=== PATIENT | female | born 1950 | race Caucasian/White ===

== ENCOUNTER 2020-07-29 12:21 | Emergency (ER) | payer MEDICAID, MEDICARE ==
[2020-07-29] MEDS ORDERED: KETOROLAC 60 MG/2 ML VIAL IM STA (12:40)
--- NOTE | 2020-07-29 12:42 | ED Physician Documentation ---
History of Present Illness - Stated complaint Stated Complaint: GLF - RT ARM INJURY - Chief complaint Chief Complaint: Trauma Ext - History obtained from History obtained from: Patient, Family - History of Present Illness Timing: Yesterday Pain level max: 9 Pain level now: 9 - Additonal information Additional information: 70-year-old female presents to the emergency department after a slip and fall in the bathtub yesterday. She states that she struck her head and "saw stars". She does not think she was knocked out. Has had some nausea but no vomiting. She is complaining of pain to the right side of her chest and bilateral ribs. She is also complaining of pain to the right arm. She states it is mostly in the upper arm, states she is unable to move or use the arm at all today. She drove herself here today. No numbness or tingling. No loss of bowel or bladder control. Does not take any blood thinners at home. 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: section, Hysterectomy, Breast reduction - Present Medications Home Medications: Ambulatory Orders Medication Instructions Recorded Confirmed Lindane 60 ml TP ONCE #1 tub 02/19/14 Sulfamethoxazole/Trimethoprim 1 each PO BID #14 tablet 02/19/14 [Bactrim Ds Tablet] cephALEXin [Keflex] 500 mg PO Q6H #28 capsule 02/19/14 Oxycodone HCl/Acetaminophen 1 - 2 each PO Q6H PRN #14 tablet 07/29/20 [Percocet 5-325 mg Tablet] - Allergies Allergies/Adverse Reactions: Allergies Allergy/AdvReac Type Severity Reaction Status Date / Time codeine Allergy Nausea Verified 02/19/14 15:07 - Social History Does the pt smoke?: Yes Smoking Status: Current every day smoker Does the pt drink ETOH?: No Does the pt have substance abuse?: No - POLST Patient has POLST: No PD ED PE NORMAL - Vitals Vital signs reviewed: Yes - General General: Alert and oriented X 3, No acute distress - HEENT HEENT: Atraumatic, PERRL, Ears normal, Moist mucous membranes, Pharynx benign - Neck Neck: Supple, no meningeal sign, Other (Mild upper C-spine tenderness to palpation. No step-off or deformity.) - Cardiac Cardiac: RRR - Respiratory Respiratory: No respiratory distress, Clear bilaterally, Other (TTP over the R anterior chest wall and ribs, no crepitus or ecchymosis. ) - Abdomen Abdomen: Soft, Non tender, Non distended - Back Back: No spinal TTP - Derm Derm: Warm and dry - Extremities Extremities: Other (R arm - Tender to palpation over the midshaft humerus, right upper extremity. Minimal tenderness around the glenohumeral joint. Severely limited range of motion secondary to pain. NVI. no deformity. 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 No acute skull fracture. ) C spine CT Radiology: Prelim report reviewed, EMP read contemporaneously, See rad report (no fracture, degenerative changes) CT chest w/o Radiology: Prelim report reviewed, EMP read contemporaneously R humerus xray Radiology: Prelim report reviewed, EMP read contemporaneously, See rad report PD MEDICAL DECISION MAKING - ED course Complexity details: reviewed results, re-evaluated patient, considered differential, d/w patient, d/w family ED course: Patient with a comminuted, impacted right proximal humeral shaft/surgical neck fracture. Placed in a sling. We will have her follow-up with orthopedics for further care. No other acute injuries on imaging. Neurovascularly intact. Axillary nerve intact. Patient counseled regarding signs and symptoms for which I believe and urgent re-evaluation would be necessary. Patient with good under standing of and agreement to plan and is comfortable going home at this time This document was made in part using voice recognition software. While efforts are made to proofread this document, sound alike and grammatical errors may occur. R shoulder xray Minimal irregularity at the humeral head. This could be related to degenerative change or impacted fracture. If clinically indicated consider right shoulder radiographs. CT chest 1. Scattered scarring/atelectasis in posterior lateral periphery of bilateral lung hagen more prominent on the right side, subtle contusion cannot be excluded. No focal infiltrate, pleural effusion or pneumothorax. Airway is patent. 2. No gross acute rib fracture. Comminuted and impacted right proximal humeral shaft/surgical neck fracture is seen extending to involve greater tuberosity as above. 3. No mediastinal lymphadenopathy or hematoma. Mild atherosclerotic disease. Departure - Departure Disposition: 01 Home, Self Care Clinical Impression: Humeral surgical neck fracture Qualifiers: Encounter type: initial encounter Fracture type: closed Fracture morphology: unspecified fracture morphology Fracture alignment: nondisplaced Laterality: right Qualified Code(s): S42.214A - Unspecified nondisplaced fracture of surgical neck of right humerus, initial encounter for closed fracture Condition: Good Instructions: ED Fx Upper Ext Follow-Up: KENTRELL CHILDS MD [Primary Care Provider] - [facility] [Provider Group] - Within 1 week Prescriptions: Oxycodone HCl/Acetaminophen [Percocet 5-325 mg Tablet] 1 - 2 each PO Q6H PRN #14 tablet PRN Reason: pain Comments: Wear the sling until released by orthopedics. Return if you worsen. You do have a fracture of your right humeral neck. This should heal on its own. Do not drink alcohol or drive while on narcotic pain medicine. Note that many narcotic pain relievers also contain tylenol/acetaminophen. Please ensure that your total dose of acetaminophen from all sources does not exceed 3 grams (3000mg) per day. You may constipated on this medication, take a stool softener such as "Colace" twice a day while you are on it. Also recommend a [id number] laxative such as senna or MiraLAX any day that you do not have a bowel movement. If you received narcotic pain medication in the emergency department, do not drive or operate machinery for the next 24 hours.
--- NOTE | 2020-07-29 13:40 | XRAY Report ---
PROCEDURE: Humerus RT INDICATIONS: fall R arm pain TECHNIQUE: 2 views of the humerus were acquired. COMPARISON: None. FINDINGS: Bones: No fractures or dislocations. Minimal irregularity at the humeral head. No suspicious bony le sions. Soft tissues: No suspicious soft tissue calcifications. IMPRESSION: No humeral shaft fracture. Minimal irregularity at the humeral head. This could be related to degenerative change or impacted fr acture. If clinically indicated consider right shoulder radiographs. Reviewed by: Shadi Britton MD on 07/29/2020 1:39 PM [facility] Approved by: Shadi Britton MD on 07/29/2020 1:39 PM [facility] Station ID: [id number]
--- NOTE | 2020-07-29 13:58 | CT Report ---
PROCEDURE: HEAD WO INDICATIONS: fall,head injury TECHNIQUE: Noncontrast 4.5 mm thick angled axial sections acquired from the foramen magnum to the vertex. For r adiation dose reduction, the following was used: automated exposure control, adjustment of mA and/or kV according to patient size. COMPARISON: None FINDINGS: Image quality: Excellent. CSF spaces: Basal cisterns are patent. No extra-axial fluid collections. The ventricles are symmet aleksandra in size and shape. Brain: No intracranial bleeds or masses. There is cerebral volume loss for age, with resultant vent ricular and sulcal prominence. There are periventricular and deep white matter chronic small vessel ischemic changes. There is intracranial internal carotid artery atherosclerosis. Skull and face: Calvarium and visualized facial bones appear intact, without suspicious lesions. Sinuses: Visualized sinuses and mastoids are clear. IMPRESSION: No CT evidence of acute intracranial pathology. No acute skull fracture. Reviewed by: Skyler Alba MD on 07/29/2020 1:56 PM PST Approved by: Skyler Alba MD on 07/29/2020 1:56 PM PST Station ID: [id number]
--- NOTE | 2020-07-29 14:16 | CT Report ---
PROCEDURE: CERVICAL SPINE WO INDICATIONS: fall, neck pain TECHNIQUE: Noncontrast 3 mm thick sections acquired from the skull base to the T4 level. Sagittal and coronal r eformats were then constructed. For radiation dose reduction, the following was used: automated exp osure control, adjustment of mA and/or kV according to patient size. COMPARISON: None. FINDINGS: Image quality: Excellent. Bones: No fractures or dislocations. There is severe degenerative disc disease at C4-C5 and C5-C6, and moderate degenerative disease at C3-C4 and C6-7 C7. [id number] bilateral facet arthropathy scattered in cervical spine. Visualized superior ribs are intact. Soft tissues: Prevertebral soft tissues are normal in thickness. No paravertebral hematomas. No ap ical pneumothoraces. IMPRESSION: 1. No cervical spine fracture. 2. Degenerative changes as described. Reviewed by: Manuel Lund MD on 07/29/2020 2:15 PM PST Approved by: Manuel Lund MD on 07/29/2020 2:15 PM PST Station ID: [id number]
--- NOTE | 2020-07-29 14:26 | CT Report ---
PROCEDURE: CHEST WO INDICATIONS: fall, chest pain TECHNIQUE: Noncontrast 5 mm thick sections acquired from the pulmonary apices to the posterior costophrenic angl es. 7 mm thick coronal and sagittal MIP reformats were then acquired. For radiation dose reduction, the following was used: automated exposure control, adjustment of mA and/or kV according to patient size. COMPARISON: None FINDINGS: Image quality: Excellent. Lungs and pleura: No acute air space opacities. Atelectasis/scarring scattered in posterior and late ral aspect of bilateral lung hagen are seen. No pleural effusions or pneumothorax. Central and michael pheral airways are patent and normal in caliber. Mediastinum: Heart size is normal. No pericardial effusion. No mediastinal adenopathy by size crit eria. Mild atherosclerotic disease is seen Thoracic aorta and central pulmonary arteries are normal i n size. Esophagus is normal in caliber. No hiatal hernia. Bones and chest wall: Comminuted and slightly impacted proximal humeral shaft/surgical neck fracture is seen with fracture line extending to involve greater tuberosity and superior laterally displaced g reater tuberosity fragment. Degenerative disc disease throughout thoracic spine is seen. No vertebral body compression fractures. No axillary or supraclavicular adenopathy by size criteria. The thyroi d is normal in size. Abdomen: Visualized upper abdominal solid organs and bowel loops appear normal in the absence of con trast. IMPRESSION: 1. Scattered scarring/atelectasis in posterior lateral periphery of bilateral lung hagen more promin ent on the right side, subtle contusion cannot be excluded. No focal infiltrate, pleural effusion or pneumothorax. Airway is patent. 2. No gross acute rib fracture. Comminuted and impacted right proximal humeral shaft/surgical neck fr acture is seen extending to involve greater tuberosity as above. 3. No mediastinal lymphadenopathy or hematoma. Mild atherosclerotic disease. Reviewed by: Skyler Alba MD on 07/29/2020 2:25 PM PST Approved by: Skyler Alba MD on 07/29/2020 2:25 PM PST Station ID: [id number]
[2020-07-29 14:52] VITALS: BP 159/70
== END 2020-07-29 14:55 | disposition home or self-care (01) ==
LOC: ED 12:21
DX: S42.214A Unspecified nondisplaced fracture of surgical neck of right humerus, initial encounter for closed fracture (principal); S09.90XA Unspecified injury of head, initial encounter; R07.89 Other chest pain; W18.2XXA Fall in (into) shower or empty bathtub, initial encounter; M50.31 Other cervical disc degeneration, high cervical region; E11.9 Type 2 diabetes mellitus without complications; F17.200 Nicotine dependence, unspecified, uncomplicated
CPT/HCPCS: 70450; 71250; 72125; 96372; 99284